=== PATIENT | male | born 1960 | race Caucasian/White ===

== ENCOUNTER 2017-08-05 14:08 | Emergency (ER) | payer BC ==
[2017-08-05 14:46] LABS: Bilirubin Negative (Negative); Blood, Urine Large (Negative); Clarity Hazy (Clear); Glucose, Urine (Dipstick) 500 mg/dL (Negative); Leukocyte Negative (Negative); Nitrite Negative (Negative); Protein, Urine (Dipstick) 30 mg/dL (Neg-Trace); Urobilinogen 0.2 mg/dL (0.2-1.0); pH, Urine 7.5 (5.0-9.0)
[2017-08-05 14:54] LABS: Bacteria/HPF 1+ HPF (None Seen); RBC/HPF 21-50 HPF (0-3); Squamous Epithelial None Seen HPF (0-3); WBC/HPF None Seen HPF (0-3)
[2017-08-05] MEDS ORDERED: Morphine 4 MG/ML Carpuject ONE (14:57)
[2017-08-05] MEDS ORDERED: Ketorolac Tromethamine 30 MG/ML VIAL ONE (14:58)
[2017-08-05 15:11] LABS: #Basophils 0.1 thou/uL (0.0-0.2); #Eosinphils 0.1 thou/uL (0.0-0.7); #Lymphocytes 1.5 thou/uL (1.20-3.40); #Monocytes 0.5 thou/uL (0.11-0.59); #Neutrophils 7.8 thou/uL (1.40-6.50); %Basophils 1.4 % (0.0-1.0); %Eosinophils 1.3 % (0.0-10.0); %Lymphocytes 14.6 % (21.0-51.0); %Neutrophils 77.7 % (42.0-75.0); Hemoglobin 15.1 g/dL (14.0-18.0); Mean Corpuscular HGB CONC 34.2 g/dL (32.0-36.0); Mean Corpuscular Hemoglobin 30.2 pg (27.0-31.0); Mean Corpuscular Volume 88.3 fl (80.0-94.0); Mean Platelet Volume 10.1 fL (7.4-10.4); Platelet Count 188 thou/uL (130-400); RBC Distribution Width 11.4 % (11.5-14.5); Red Blood Cell (RBC) Count 5.01 mill/uL (4.70-6.10)
[2017-08-05 15:25] LABS: ALT (SGPT) 28 U/L (8-55); AST (SGOT) 17 U/L (5-34); Albumin 4.2 g/dL (3.5-5.0); Alkaline Phosphatase 49 U/L (40-150); Anion Gap 16 mmol/L (10-20); BUN (Urea Nitrogen) 17 mg/dL (8.4-25.7); Bilirubin, Total 0.5 mg/dL (0.2-1.2); Calc. Creatinine Clearance 0 mL/min (70-130); Calcium 9.3 mg/dL (7.8-10.44); Carbon Dioxide 24 mmol/L (22-29); Chloride 103 mmol/L (98-107); Estimated GFR-MDRD Greater than 90; Globulin 2.5 g/dL (2.4-3.5); Glucose 301 mg/dL (70-105); Potassium 3.9 mmol/L (3.5-5.1); Protein, Total 6.7 g/dL (6.0-8.3); Sodium 139 mmol/L (136-145)
--- NOTE | 2017-08-05 16:24 | CT ---
CT ABDOMEN AND PELVIS WITHOUT CONTRAST: HISTORY: A 57-year-old male with right-sided abdominal pain. FINDINGS: Absence of oral and IV contrast reduces the sensitivity of the exam, particularly for evaluation of s olid organs involved. There are mild dependent changes in the lung bases. No free air or free fluid is seen in the abdomen or pelvis. No calcified gallstones are identified. There is sigmoid diverticulosis. There are bilateral renal calculi. There is right-sided hydroureteronephrosis secondary to an obstru cting 5 mm calculus in the right ureter, at the L3 level. There is a 4 mm calcific density in the pe lvis on the left, which is in the region of the left UVJ, and may either represent a recently passed calculus, since there is no associated left-sided hydroureteronephrosis, or may represent a pelvic ph lebolith. There is mild enlargement of the prostate gland. There are vascular calcifications without evidence of aneurysmal dilatation of the abdominal aorta. A normal appearing appendix is present. There are degenerative changes in the spine and hip joints. IMPRESSION: 1. Obstructing 5 mm right ureteric calculus at the L3 level. 2. Bilateral renal calculi. 3. Recently passed 4 mm left calculus versus pelvic phlebolith. 4. Sigmoid diverticulosis. POS: DEANDRE
== END 2017-08-05 16:50 | disposition home or self-care (01) ==
LOC: SCSER 14:08
DX: N20.0 Calculus of kidney (principal); E11.9 Type 2 diabetes mellitus without complications
CPT/HCPCS: 74176; 80053; 81003; 81015; 85025; 87086; 96361; 96374; 96375; J1885; J2270

== ENCOUNTER 2019-01-30 15:55 | Outpatient (CLI) | payer BC, OTHER ==
--- NOTE | 2019-01-31 08:16 | MRI ---
MRI LUMBAR SPINE PERFORMED WITHOUT CONTRAST ENHANCEMENT: Date: 01/30/19 HISTORY: Chronic low back pain. FINDINGS: The vertebral bodies are normal in height. Disc desiccation changes at L3-4, L4-5, and L5-S1 are no farida. There is some mild disc narrowing at L5-S1. There is no significant periaortic adenopathy. The v isualized portions of the kidneys are normal. T12-L1: Degenerative facet changes without canal or foraminal stenosis. L1-2: Degenerative facet changes associated with some borderline canal narrowing. L2-3: There is a disc bulge with facet and ligamentous hypertrophic change and mild canal stenosis. No significant foraminal narrowing. L3-4: Disc bulge with facet and ligamentous hypertrophic changes are associated with a very severe d egree of canal stenosis. There is also some mild to moderate left-sided foraminal narrowing. L4-5: Disc bulge with facet and ligamentous hypertrophic changes are associated with a moderately se reina degree of canal stenosis. There is some mild right and moderate left foraminal narrowing. Small central annular disc tear also incidentally noted. L5-S1: Disc bulge and facet changes associated with some mild canal narrowing, and mild left-sided f oraminal narrowing. IMPRESSION: Multilevel canal and foraminal stenosis. The stenosis is particularly severe at the L3-4 level and mo derately severe at the L4-5 level. POS: DEANDRE
== END 2019-01-30 15:56 | disposition home or self-care (01) ==
LOC: SCSMRI 15:55
PROVIDERS: ATTEND Family Medicine
DX: M54.16 Radiculopathy, lumbar region (principal); M48.061 Spinal stenosis, lumbar region without neurogenic claudication
CPT/HCPCS: 72148

== ENCOUNTER 2019-02-27 06:45 | Day surgery (SDC) | payer BC, OTHER ==
[2019-02-21 09:06] VITALS: BMI 29.1
--- NOTE | 2019-02-26 23:50 | HP ---
HISTORY OF PRESENT ILLNESS: Mr. Jaimes is a pleasant 58-year-old gentleman referred to us by Dr. Chano Barth for progressive left lower extremity weakness. He has an MRI scan performed at [facility], which revealed severe lumbar stenosis at L4-L5 with necrosis on the lateral recesses and would impact the descending L5 nerve root. He does have some pain as well as weakness. He has difficulty toe or heel walking secondary to this weakness. He hopes to discuss possible surgical intervention for this purpose. PAST MEDICAL HISTORY: Diabetes, seasonal allergies. CURRENT MEDICATIONS: Tramadol. ALLERGIES: TO HYDROCODONE. PAST SURGICAL HISTORY: Left shoulder tendon surgery in 2003. PHYSICAL EXAMINATION: The patient is alert and oriented x3. Gait is altered and antalgic. Lower extremity motor exam reveals 4/5 strength in plantar and dorsiflexion. He is unable to heel or toe walk. ASSESSMENT: Lumbar stenosis and radiculopathy. PLAN: Dr. Mcdermott met with the patient, reviewed imaging, advocated for an L4-L5 decompression. He explained to the patient the risks, benefits, and alternatives to the procedure. The patient expressed understanding and elected to move forward with surgery as discussed. I do believe the patient is mentally competent and capable of making medical decisions for himself and we will move forward with surgery as planned. Job ID: [id number]
[2019-02-27] MEDS ORDERED: Bupivacaine HCl 0.5%/Epinephrine 1:200,000/PF 30 ml Vial ONE (07:46)
[2019-02-27] MEDS ORDERED: Thrombin 5000 UNITS/5 ML VIAL ONE (07:46)
[2019-02-27] MEDS ORDERED: Fentanyl 100 MCG/2 ML VIAL ONE ×2 (08:14→08:52)
[2019-02-27] MEDS ORDERED: Labetalol HCl 100 MG/20 ML VIAL ONE (10:13)
[2019-02-27] MEDS ORDERED: Tamsulosin HCl 0.4 MG CAP ONE (10:20)
--- NOTE | 2019-02-27 10:27 | OP ---
DATE OF PROCEDURE: 02/27/2019 TELEPHONE MESSENGER: Sanchez Juárez PA-C INDICATION: Pain. DIAGNOSIS: Lumbar stenosis and claudication and lumbar radiculopathy. PROCEDURES PERFORMED: L4-L5 lumbar decompression. ANESTHESIA: General. DESCRIPTION OF PROCEDURE: The patient was brought into the operating room and placed under general anesthesia. He was flipped from the supine to prone position on the operating room table. A linear incision was planned over the L4 segment. After prepping and draping and after an appropriate preoperative pause, the incision was created. The soft tissues were swept away from midline. Self-retaining retractors were placed in the wound for optimal exposure. After confirming the appropriate level with C-arm fluoroscopy, an Adson rongeur as well as a high-speed cutting drill bit and 2, 3, and 4 mm Kerrisons used to perform a complete laminectomy of L4. The superior aspect of L5 was also decompressed in order to decompress the lateral recesses at the L4 interface. I carried the decompression of L4 up to the bottom of L3 in order to decompress that segment as well. After decompressing, the wound was irrigated. Hemostasis was maintained throughout. The wound was then closed in anatomic layers and a pressure dressing was applied. There were no known procedural complications. Job ID: [id number]
[2019-02-27] MEDS ORDERED: Morphine 2 MG/ML SYRINGE ONE (11:37)
[2019-02-27] MEDS ORDERED: ceFAZolin Sodium (SDC) 2 GM/100 ML BAG ONE (12:26)
== END 2019-02-27 14:13 | disposition home or self-care (01) ==
LOC: SDC 06:45
PROVIDERS: ATTEND Neurological Surgery
PROC: 01NB0ZZ Release Lumbar Nerve, Open Approach (ICD-10-PCS; principal; 2019-02-27)
DX: M48.062 Spinal stenosis, lumbar region with neurogenic claudication (principal); M54.16 Radiculopathy, lumbar region; E11.9 Type 2 diabetes mellitus without complications; Z88.5 Allergy status to narcotic agent; Z79.84 Long term (current) use of oral hypoglycemic drugs
CPT/HCPCS: 76000; J0670; J0690; J2270; J3010

== ENCOUNTER 2023-10-19 16:24 | Outpatient (CLI) | payer BC, OTHER | END 2023-10-19 16:25 | disposition home or self-care (01) | LOC: SCSRAD 16:24 | PROVIDERS: ATTEND Nurse Practitioner Family | DX: L03.114 Cellulitis of left upper limb (principal); M79.5 Residual foreign body in soft tissue ==